=== PATIENT | female | born 1950 | race Caucasian/White ===

== ENCOUNTER 2017-12-12 16:47 | Emergency (ER) | payer OTHER ==
[~2017-12-12] VITALS: Ht 167.6 cm; Wt 63.9 kg
[~2017-12-12 16:47] MED LIST: AMITRIPTYLINE H10 MG PO; BAYER ASPIRIN1 EACH PO; CATAPRES0.1 MG PO; CO Q-1050 MG PO; DOXYCYCLINE HY100 M3 PO; EFFEXOR XR37.5 MG PO; FISH OIL300 MG PO; GARLIC1 MG PO; HAIR, SKIN & N1 EAC1 PO; ISOSORBIDE MONO60 MG PO; MELOXICAM15 MG PO; METOPROLOL TART50 MG PO; MILLIPRED DP5 MG PO; PHARMACIST FAV1 EACH PO; TIZANIDINE HCL4 MG PO; TRAMADOL HCL50 MG PO; WELCHOL3.75 GM PO; WELCHOL625 MG PO
[2017-12-12 17:40] LABS: HEMATOCRIT 30.5 % (36.0-46.0); HEMOGLOBIN 10.6 G/DL (11.9-15.5); MCH 34.1 PG (29.0-34.0); MCHC 34.8 G/DL (30.0-36.0); MCV 98.1 FL (83-99); PLATELET COUNT 190 K/uL (156-360); RBC DIS.WIDTH-SD 46.3 % (39-53); RED BLOOD COUNT 3.11 M/uL (3.80-5.20); WHITE BLOOD COUNT 8.9 K/uL (4.1-10.2)
[2017-12-12 17:50] LABS: CHLORIDE 101 mEq/L (99-109); POTASSIUM 3.6 mEq/L (3.7-5.4); SODIUM 140 mEq/L (136-147)
[2017-12-12 17:51] LABS: GLUCOSE 121 mg/dL (70-99)
[2017-12-12 17:55] LABS: CREATININE 0.8 mg/dL (0.6-1.3); GFR ESTIMATE (CALCULATED) > 59 mL/min/
[2017-12-12 17:56] LABS: UREA NITROGEN (BUN) 26 mg/dL (9-23)
[2017-12-12 18:01] LABS: TROP-I INTERPRETATION NEGATIVE; TROPONIN-I < 0.01 ng/mL (0.0-0.30)
[2017-12-12 21:07] LABS: TROP-I INTERPRETATION NEGATIVE; TROPONIN-I 0.01 ng/mL (0.0-0.30)
[2017-12-12 21:31] LABS: APPEARANCE CLEAR ((CLEAR)); BILIRUBIN NEGATIVE; BLOOD NEGATIVE; COLOR YELLOW ((YELLOW)); GLUCOSE (STRIP) NEGATIVE; KETONES 80; LEUKOCYTES SMALL; NITRITE NEGATIVE; PROTEIN (STRIP) NEGATIVE; SPECIFIC GRAVITY 1.017 (1.000-1.030); UROBILINOGEN 0.2 MG/DL (0.2-1.0)
[2017-12-12 21:35] LABS: BACTERIA NONE SEEN /HPF; EPITHELIAL CELLS RARE /HPF; MUCUS TRACE /LPF; RED BLOOD CELLS 0-5 /HPF (0-5); UCUL ADDED? YES
[2017-12-12 22:47] VITALS: BP 145/55
[2017-12-13] MEDS ORDERED: IBUPROFEN800 MG PO (15:29)
[2017-12-13] MEDS ORDERED: PEN-VEE K,VEET500 MG PO (15:30)
== END 2017-12-12 22:56 | disposition home or self-care (01) ==
LOC: EME 16:47
PROVIDERS: Nurse Practitioner Family
DX: R42 Dizziness and giddiness (principal); R07.89 Other chest pain; R06.02 Shortness of breath; I10 Essential (primary) hypertension; E78.5 Hyperlipidemia, unspecified; K21.9 Gastro-esophageal reflux disease without esophagitis; M48.00 Spinal stenosis, site unspecified; F32.9 Major depressive disorder, single episode, unspecified; Z87.891 Personal history of nicotine dependence; Z79.82 Long term (current) use of aspirin
CPT/HCPCS: 70450; 71046; 80048; 81003; 84484; 85027; 87086; 93005; 99281; 99285; J2060; J2405; J7030

== ENCOUNTER 2017-12-13 13:55 | Inpatient (IN) | payer OTHER ==
[~2017-12-13] VITALS: Ht 167.6 cm; Wt 75.8 kg
[2017-12-13] VITALS (9 sets, daily range): BP systolic 95–154; BP diastolic 45–87
[2017-12-13 14:45] LABS: BASOPHIL (%) 0.2 % (0-1); EOSINOPHIL (%) 0.2 % (0-5); HEMATOCRIT 19.8 % (36.0-46.0); IMMATURE GRANULOCYTE (%) 0.6 % (0.0-0.7); LYMPHOCYTE (%) 6.4 % (15-42); LYMPHOCYTE COUNT 0.4 K/uL (1.0-2.8); MCH 33.7 PG (29.0-34.0); MCHC 34.3 G/DL (30.0-36.0); MONOCYTE (%) 9.5 % (3-12); MONOCYTE COUNT 0.6 K/uL (0-0.8); NEUTROPHIL (%) 83.1 % (45-76); NEUTROPHIL COUNT 5.5 K/uL (1.8-6.4); PLATELET COUNT 145 K/uL (156-360); RBC DIS.WIDTH-CV 12.7 % (11.8-14.6); WHITE BLOOD COUNT 6.6 K/uL (4.1-10.2)
[2017-12-13 14:48] LABS: HEMOGLOBIN 6.8 G/DL (11.9-15.5); RED BLOOD COUNT 2.02 M/uL (3.80-5.20)
[2017-12-13 15:09] LABS: ALBUMIN 3.2 g/dL (3.2-4.8); CHLORIDE 104 mEq/L (99-109); POTASSIUM 3.8 mEq/L (3.7-5.4); SODIUM 135 mEq/L (136-147)
[2017-12-13 15:12] LABS: GLUCOSE 127 mg/dL (70-99); TOTAL PROTEIN 5.1 g/dL (6.4-8.3)
[2017-12-13 15:13] LABS: TROP-I INTERPRETATION NEGATIVE; TROPONIN-I 0.01 ng/mL (0.0-0.30)
[2017-12-13 15:14] LABS: TOTAL BILIRUBIN 0.1 mg/dL (0.0-1.0)
[2017-12-13 15:15] LABS: ALKALINE PHOSPHATASE 46 IU/L (3-129); CREATININE 0.7 mg/dL (0.6-1.3); GFR ESTIMATE (CALCULATED) > 59 mL/min/
[2017-12-13 15:16] LABS: UREA NITROGEN (BUN) 30 mg/dL (9-23)
[2017-12-13 15:17] LABS: AST (GOT) 13 IU/L (2-34)
[2017-12-13 15:18] LABS: ALT (GPT) 10 IU/L (3-49)
[2017-12-13 15:19] LABS: CREATINE KINASE 29 IU/L (1-294); LIPASE 13 U/L (1.0-51.0); TOTAL CK 29 IU/L (1-294)
[2017-12-13 15:28] LABS: CK-MB 1.1 ng/mL (0.0-4.9); CKMB RELATIVE INDEX 3.8 (0.0-3.9)
[2017-12-13] MEDS ORDERED: IBUPROFEN800 MG PO (15:29)
[2017-12-13] MEDS ORDERED: PEN-VEE K,VEET500 MG PO (15:30)
[2017-12-13 21:16] LABS: BASOPHIL (%) 0.2 % (0-1); EOSINOPHIL (%) 0 % (0-5); HEMATOCRIT 23.1 % (36.0-46.0); HEMOGLOBIN 7.9 G/DL (11.9-15.5); IMMATURE GRANULOCYTE (%) 0.8 % (0.0-0.7); LYMPHOCYTE COUNT 0.9 K/uL (1.0-2.8); MCH 33.2 PG (29.0-34.0); MCHC 34.2 G/DL (30.0-36.0); MCV 97.1 FL (83-99); MONOCYTE (%) 14.8 % (3-12); MONOCYTE COUNT 0.8 K/uL (0-0.8); NEUTROPHIL (%) 66.2 % (45-76); NEUTROPHIL COUNT 3.4 K/uL (1.8-6.4); PLATELET COUNT 123 K/uL (156-360); RBC DIS.WIDTH-CV 14.3 % (11.8-14.6); RBC DIS.WIDTH-SD 50.3 % (39-53); RED BLOOD COUNT 2.38 M/uL (3.80-5.20); WHITE BLOOD COUNT 5.1 K/uL (4.1-10.2)
[2017-12-14] VITALS (12 sets, daily range): BP systolic 98–153; BP diastolic 50–70
[2017-12-14 07:03] LABS: BASOPHIL (%) 0.2 % (0-1); EOSINOPHIL (%) 0 % (0-5); HEMATOCRIT 27.2 % (36.0-46.0); HEMOGLOBIN 9.4 G/DL (11.9-15.5); IMMATURE GRANULOCYTE (%) 0.2 % (0.0-0.7); LYMPHOCYTE (%) 31.2 % (15-42); LYMPHOCYTE COUNT 1.6 K/uL (1.0-2.8); MCH 31.9 PG (29.0-34.0); MCHC 34.6 G/DL (30.0-36.0); MONOCYTE (%) 13.7 % (3-12); MONOCYTE COUNT 0.7 K/uL (0-0.8); NEUTROPHIL (%) 54.7 % (45-76); NEUTROPHIL COUNT 2.9 K/uL (1.8-6.4); PLATELET COUNT 104 K/uL (156-360); RBC DIS.WIDTH-CV 15.9 % (11.8-14.6); RBC DIS.WIDTH-SD 52.7 % (39-53); WHITE BLOOD COUNT 5.2 K/uL (4.1-10.2)
[2017-12-14 07:09] LABS: MCV 92.2 FL (83-99); RED BLOOD COUNT 2.95 M/uL (3.80-5.20)
[2017-12-14 07:11] LABS: ALBUMIN 2.7 G/DL (3.2-4.8); ALKALINE PHOSPHATASE 34 IU/L (3-129); ALT (GPT) 7 IU/L (3-49); AST (GOT) 10 IU/L (2-34); CHLORIDE 108 MEQ/L (99-109); CREATININE 0.6 MG/DL (0.6-1.3); GFR ESTIMATE (CALCULATED) > 59 mL/min/; GLUCOSE 108 mg/dL (70-99); PHOSPHORUS 2.1 mg/dL (2.5-4.9); POTASSIUM 3.8 MEQ/L (3.7-5.4); SODIUM 139 MEQ/L (136-147); TOTAL BILIRUBIN 0.2 MG/DL (0.0-1.0); TOTAL PROTEIN 4.3 G/DL (6.4-8.3); UREA NITROGEN (BUN) 12 mg/dL (9-23)
[2017-12-14] MEDS ORDERED: BENTYL20 MG PO (11:46)
[2017-12-14] MEDS ORDERED: KLONOPIN0.5 M1 PO (11:46)
[2017-12-14] MEDS ORDERED: BIOTIN1000 MICRO PO (11:47)
[2017-12-14] MEDS ORDERED: B-COMPLEX-VITA1 EACH PO (11:48)
[2017-12-14] MEDS ORDERED: VITAMIN D31000 UNI2 PO (11:48)
[2017-12-14] MEDS ORDERED: TYLENOL EXTRA500 MG PO (11:49)
[2017-12-14] MEDS ORDERED: CALCIUM 600 +1 EA12 PO (11:49)
[2017-12-14] MEDS ORDERED: HAIR, SKIN & N1 EAC1 PO (11:50)
[2017-12-15 04:30] VITALS: BP 118/58
[2017-12-15 06:36] LABS: BASOPHIL (%) 0.5 % (0-1); EOSINOPHIL (%) 0.2 % (0-5); HEMATOCRIT 27.7 % (36.0-46.0); HEMOGLOBIN 9.2 G/DL (11.9-15.5); IMMATURE GRANULOCYTE (%) 0.2 % (0.0-0.7); LYMPHOCYTE COUNT 1.7 K/uL (1.0-2.8); MCH 31.1 PG (29.0-34.0); MCHC 33.2 G/DL (30.0-36.0); MCV 93.6 FL (83-99); MONOCYTE (%) 8.9 % (3-12); MONOCYTE COUNT 0.4 K/uL (0-0.8); NEUTROPHIL (%) 49.2 % (45-76); NEUTROPHIL COUNT 2.1 K/uL (1.8-6.4); PLATELET COUNT 116 K/uL (156-360); RBC DIS.WIDTH-CV 16.5 % (11.8-14.6); RBC DIS.WIDTH-SD 56.6 % (39-53); RED BLOOD COUNT 2.96 M/uL (3.80-5.20); WHITE BLOOD COUNT 4.2 K/uL (4.1-10.2)
[2017-12-15 06:42] LABS: INTER. NORMALIZED RATIO 1.1
[2017-12-15 06:44] LABS: PTT 25.7 SEC (25-37)
[2017-12-15 07:01] LABS: ALBUMIN 3.2 G/DL (3.2-4.8); CHLORIDE 109 MEQ/L (99-109); CREATININE 0.6 MG/DL (0.6-1.3); GFR ESTIMATE (CALCULATED) > 59 mL/min/; GLUCOSE 108 mg/dL (70-99); PHOSPHORUS 2.5 mg/dL (2.5-4.9); POTASSIUM 3.9 MEQ/L (3.7-5.4); SODIUM 144 MEQ/L (136-147); UREA NITROGEN (BUN) 6 mg/dL (9-23)
[2017-12-15 08:43] VITALS: BP 124/78
[2017-12-15 15:46] VITALS: BP 113/71
[2017-12-15 18:15] LABS: BASOPHIL (%) 0.2 % (0-1); EOSINOPHIL (%) 0.5 % (0-5); HEMATOCRIT 27.8 % (36.0-46.0); HEMOGLOBIN 9.3 G/DL (11.9-15.5); IMMATURE GRANULOCYTE (%) 0.2 % (0.0-0.7); LYMPHOCYTE (%) 37.3 % (15-42); LYMPHOCYTE COUNT 1.5 K/uL (1.0-2.8); MCH 31.4 PG (29.0-34.0); MCHC 33.5 G/DL (30.0-36.0); MCV 93.9 FL (83-99); MONOCYTE (%) 7.5 % (3-12); MONOCYTE COUNT 0.3 K/uL (0-0.8); NEUTROPHIL (%) 54.3 % (45-76); NEUTROPHIL COUNT 2.2 K/uL (1.8-6.4); PLATELET COUNT 106 K/uL (156-360); RBC DIS.WIDTH-CV 16.3 % (11.8-14.6); RBC DIS.WIDTH-SD 55.8 % (39-53); RED BLOOD COUNT 2.96 M/uL (3.80-5.20)
[2017-12-15 19:00] VITALS: BP 125/58
[2017-12-15 23:15] VITALS: BP 129/61
[2017-12-16 04:00] VITALS: BP 118/70
[2017-12-16 05:35] LABS: HEMATOCRIT 27.2 % (36.0-46.0); HEMOGLOBIN 9.1 G/DL (11.9-15.5); MCH 31.7 PG (29.0-34.0); MCHC 33.5 G/DL (30.0-36.0); MCV 94.8 FL (83-99); PLATELET COUNT 113 K/uL (156-360); RBC DIS.WIDTH-SD 55.7 % (39-53); RED BLOOD COUNT 2.87 M/uL (3.80-5.20); WHITE BLOOD COUNT 3.9 K/uL (4.1-10.2)
[2017-12-16 07:19] VITALS: BP 151/70
[2017-12-16 11:31] VITALS: BP 131/68
[2017-12-16 17:23] VITALS: BP 187/99
[2017-12-16 19:00] VITALS: BP 163/77
[2017-12-16 23:00] VITALS: BP 134/77
[2017-12-17 04:45] VITALS: BP 165/89
[2017-12-17 05:48] LABS: BASOPHIL (%) 0.2 % (0-1); EOSINOPHIL (%) 0.7 % (0-5); HEMATOCRIT 27.6 % (36.0-46.0); HEMOGLOBIN 9.1 G/DL (11.9-15.5); IMMATURE GRANULOCYTE (%) 0.4 % (0.0-0.7); LYMPHOCYTE (%) 27.1 % (15-42); LYMPHOCYTE COUNT 1.5 K/uL (1.0-2.8); MCH 31.5 PG (29.0-34.0); MCV 95.5 FL (83-99); MONOCYTE (%) 7.4 % (3-12); MONOCYTE COUNT 0.4 K/uL (0-0.8); NEUTROPHIL (%) 64.2 % (45-76); NEUTROPHIL COUNT 3.5 K/uL (1.8-6.4); PLATELET COUNT 137 K/uL (156-360); RBC DIS.WIDTH-CV 15.6 % (11.8-14.6); RBC DIS.WIDTH-SD 53.3 % (39-53); RED BLOOD COUNT 2.89 M/uL (3.80-5.20); WHITE BLOOD COUNT 5.4 K/uL (4.1-10.2)
[2017-12-17 06:13] LABS: CHLORIDE 108 MEQ/L (99-109); CREATININE 0.6 MG/DL (0.6-1.3); GFR ESTIMATE (CALCULATED) > 59 mL/min/; GLUCOSE 95 mg/dL (70-99); POTASSIUM 3.3 MEQ/L (3.7-5.4); SODIUM 145 MEQ/L (136-147); UREA NITROGEN (BUN) 5 mg/dL (9-23)
[2017-12-17 07:23] VITALS: BP 123/67
[2017-12-17 11:50] VITALS: BP 147/68
[2017-12-17] MEDS ORDERED: K-TAB10 MEQ PO (17:36)
[2017-12-17] MEDS ORDERED: PANTOPRAZOLE SO40 MG PO (17:36)
== END 2017-12-17 20:30 | disposition home or self-care (01) | DRG 378 ==
LOC: EME 13:55 → 4EAST 16:09 → EDOF 16:09 → CANRESERV 16:13 → ENRESERV 16:13 → 4EAST 17:43
PROVIDERS: Emergency Medicine; Internal Medicine; Internal Medicine Gastroenterology
PROC: 30233N1 Transfusion of Nonautologous Red Blood Cells into Peripheral Vein, Percutaneous Approach (ICD-10-PCS; principal; 2017-12-13)
PROC: 0DB78ZX Excision of Stomach, Pylorus, Via Natural or Artificial Opening Endoscopic, Diagnostic (ICD-10-PCS; 2017-12-14)
PROC: 0DJ08ZZ Inspection of Upper Intestinal Tract, Via Natural or Artificial Opening Endoscopic (ICD-10-PCS; 2017-12-14)
PROC: 0DJD8ZZ Inspection of Lower Intestinal Tract, Via Natural or Artificial Opening Endoscopic (ICD-10-PCS; 2017-12-15)
PROC: 0DBP8ZX Excision of Rectum, Via Natural or Artificial Opening Endoscopic, Diagnostic (ICD-10-PCS; 2017-12-15)
DX: K25.4 Chronic or unspecified gastric ulcer with hemorrhage (principal); K62.1 Rectal polyp; D62 Acute posthemorrhagic anemia; N28.9 Disorder of kidney and ureter, unspecified; R79.89 Other specified abnormal findings of blood chemistry; R55 Syncope and collapse; K29.70 Gastritis, unspecified, without bleeding; I10 Essential (primary) hypertension; E11.9 Type 2 diabetes mellitus without complications; E78.5 Hyperlipidemia, unspecified; G89.29 Other chronic pain; M54.5 Low back pain; K21.9 Gastro-esophageal reflux disease without esophagitis; M19.90 Unspecified osteoarthritis, unspecified site; B35.1 Tinea unguium; G47.00 Insomnia, unspecified; M48.00 Spinal stenosis, site unspecified; F32.9 Major depressive disorder, single episode, unspecified; Z87.891 Personal history of nicotine dependence; Z87.01 Personal history of pneumonia (recurrent); Z79.1 Long term (current) use of non-steroidal anti-inflammatories (NSAID); Z79.82 Long term (current) use of aspirin
CPT/HCPCS: 71045; 74177; 80048; 80053; 80069; 81003; 82550; 82553; 83690; 84100; 84484; 85025; 85025 91; 85027; 85610; 85730; 86850; 86900; 86901; 86920; 88305; 88342 TC; 93005; 99281; 99285; C9113; J2250; J2270; J2405; J3010; J7030; P9016